=== PATIENT | male | born 1990 | race Caucasian/White ===

== ENCOUNTER 2020-01-24 14:59 | Emergency (ER) | payer MEDICAID, OTHER ==
[~2020-01-24] VITALS: Ht 175.3 cm; Wt 120.3 kg
[~2020-01-24 14:59] MED LIST: APIX5TAB3 PO; NO HOME MEDS
--- NOTE | 2020-01-24 15:44 | NUR ---
PT FEELS THAT HE IS HAVING MEMORY PROBLOMS/ TRUOBLE CONSITRATING HAS BEEN ON THORAZINE STATE HE QUIT TAKING HIS THORAZINE 2 DAYS AGO GO HE GOT OUT OF HALF-WAY 3 DAYS HE HAS S THUMB TWICH WHICH HE SAY HE THANKS IS FROM [facility] HE WANT TO SEE IF HE CAN GET RIDALIN OR ADORAL
[2020-01-24 15:54] VITALS: BP 127/71
[2020-01-24] MEDS ORDERED: normal saline 1000ml 1,000 ML IV ONE (16:10)
[2020-01-24 16:39] LABS: BASOPHILS % (AUTO) 0.4 % (0-1); EOSINOPHILS # (AUTO) 0.1 X10'3 (0-0.9); EOSINOPHILS % (AUTO) 0.7 % (0-6); HEMATOCRIT 41.5 % (42.0-52.0); HEMOGLOBIN 14.4 g/dl (14.0-17.9); LYMPHOCYTES # (AUTO) 1.7 X10'3 (1.1-4.8); MEAN CORPUSCULAR HEMOGLOBIN 30.7 PG (27.0-31.0); MEAN CORPUSCULAR HGB CONC 34.7 g/dL (33.0-36.5); MEAN CORPUSCULAR VOLUME 88.5 FL (78-98); MEAN PLATELET VOLUME 8.1 FL (7.4-10.4); MONOCYTES % (AUTO) 10.7 % (2-12); NEUTROPHILS # (AUTO) 6.9 X10'3 (1.8-7.7); NEUTROPHILS % (AUTO) 71.2 % (42-75); PLATELET COUNT 334 X10'3 (140-440); RED BLOOD COUNT 4.69 X10'6 (4.70-6.10); RED CELL DISTRIBUTION WIDTH 13.2 % (11.5-14.5); WHITE BLOOD COUNT 9.7 X10'3 (4.5-11.0)
[2020-01-24 16:46] LABS: D-DIMER 0.21 MG/L FEU (0-0.50)
[2020-01-24 16:49] LABS: ALANINE AMINOTRANSFERASE 43 U/L (12-78); ALBUMIN 4.2 G/DL (3.4-5.0); ALBUMIN/GLOBULIN RATIO 1.1 (1.1-1.5); ALKALINE PHOSPHATASE 107 IU/L (46-116); ANION GAP 7 (8-16); ASPARTATE AMINO TRANSFERASE 22 U/L (10-37); BILIRUBIN,TOTAL 0.7 MG/DL (0.1-1.0); BLOOD UREA NITROGEN 14 MG/DL (7-18); CHLORIDE 107 MMOL/L (99-107); CREATININE 1.08 MG/DL (0.60-1.10); GLUCOSE 94 MG/DL (70-104); POTASSIUM 4.2 MMOL/L (3.5-5.1); SODIUM 141 MMOL/L (135-145); TOTAL CARBON DIOXIDE 27.1 MMOL/L (24-32); eGFR 81 ML/MIN
== END 2020-01-24 17:32 | disposition home or self-care (01) ==
LOC: ER 14:59
DX: F90.9 Attention-deficit hyperactivity disorder, unspecified type (principal); F32.9 Major depressive disorder, single episode, unspecified; F41.9 Anxiety disorder, unspecified; F20.9 Schizophrenia, unspecified; F12.10 Cannabis abuse, uncomplicated; F17.200 Nicotine dependence, unspecified, uncomplicated; Z79.899 Other long term (current) drug therapy
CPT/HCPCS: 36415; 80053; 85025; 85379; 93005; 96360; 99284; J7030

== ENCOUNTER 2020-02-05 02:40 | Inpatient (IN) | payer MEDICAID, OTHER ==
[~2020-02-05] VITALS: Ht 177.8 cm; Wt 122.7 kg
[2020-02-05] MEDS ORDERED: LORazepam 2 mg/ml vial IV ONE ×4 (02:55→19:45)
[2020-02-05] MEDS ORDERED: normal saline 1000ml 1,000 ML IV ONE ×3 (03:00→19:45)
[2020-02-05 03:01] LABS: BASOPHILS # (AUTO) 0.2 X10'3 (0-0.2); BASOPHILS % (AUTO) 0.7 % (0-1); EOSINOPHILS % (AUTO) 0.1 % (0-6); HEMATOCRIT 39.3 % (42.0-52.0); HEMOGLOBIN 13.5 g/dl (14.0-17.9); LYMPHOCYTES # (AUTO) 1.6 X10'3 (1.1-4.8); LYMPHOCYTES % (AUTO) 5.9 % (21-51); MEAN CORPUSCULAR HEMOGLOBIN 30.2 PG (27.0-31.0); MEAN CORPUSCULAR HGB CONC 34.3 g/dL (33.0-36.5); MEAN PLATELET VOLUME 8.1 FL (7.4-10.4); MONOCYTES # (AUTO) 2.5 X10'3 (0-0.9); MONOCYTES % (AUTO) 9.6 % (2-12); NEUTROPHILS % (AUTO) 83.7 % (42-75); PLATELET COUNT 420 X10'3 (140-440); RED BLOOD COUNT 4.47 X10'6 (4.70-6.10); RED CELL DISTRIBUTION WIDTH 13.1 % (11.5-14.5)
[2020-02-05 03:03] LABS: WHITE BLOOD COUNT 26.3 X10'3 (4.5-11.0)
--- NOTE | 2020-02-05 03:08 | NUR ---
CALLED POISON CONTROL. STATED THAT IF PT DID INGEST RAT POISON, TO MONITOR COAGULATION LABS AND FOR BUSINESS CONTROLLER DEPRESSION. INITIATE SEIZURE PRECAUTIONS. REPEAT CO-AGS IN 3 DAYS FOR FOLLOW UP. EDMD AZUCENA MADE AWARE OF FINDINGS.
[2020-02-05 03:12] LABS: ALANINE AMINOTRANSFERASE 84 U/L (12-78); ALBUMIN 3.5 G/DL (3.4-5.0); ALBUMIN/GLOBULIN RATIO 0.9 (1.1-1.5); ALKALINE PHOSPHATASE 97 IU/L (46-116); ANION GAP 13 (8-16); ASPARTATE AMINO TRANSFERASE 74 U/L (10-37); BILIRUBIN,TOTAL 1.2 MG/DL (0.1-1.0); BLOOD UREA NITROGEN 14 MG/DL (7-18); CALCIUM 8.6 MG/DL (8.5-10.1); CHLORIDE 99 MMOL/L (99-107); ETHANOL < 0.010 GM/DL (0.0-0.010); GLUCOSE 90 MG/DL (70-104); POTASSIUM 4.2 MMOL/L (3.5-5.1); SODIUM 134 MMOL/L (135-145); TOTAL CARBON DIOXIDE 22.4 MMOL/L (24-32); TOTAL PROTEIN 7.2 G/DL (6.4-8.2); eGFR 89 ML/MIN
[2020-02-05 03:35] LABS: CREATINE KINASE 1332 U/L (39-308)
[2020-02-05] MEDS ORDERED: diphenhydrAMINE 50 mg/ml inj IV ONE ×2 (03:45)
--- NOTE | 2020-02-05 03:56 | NUR ---
PT STATES HE HAS NOT TAKEN HIS MEDICATIONS IN MONTHS. HAS HOME MEDS WITH HIM. THORAZINE, COGENTIN, ATORVASTATIN, TENEX
--- NOTE | 2020-02-05 03:58 | NUR ---
PREVIOUS MED INSTRUCTIONS: THORAZINE HCL: 100MG TAB: 1 TAB PO AM AND NOON THORAZINE HCL: 200MG TAB: 1 TAB PO AM AND NOON (TOTAL DOSAGE 300MG EACH ADMINISTRATION) ATORVASTATIN: 20MG TAB: I TAB PO DAILY COGENTIN: 1 MG TAB: 1 TAB PO BID TENEX: 1MG TAB : 1 TAB PO HS
[2020-02-05 04:06] LABS: CLARITY,URINE CLEAR (Clear); COLOR,URINE YELLOW (Yellow); GLUCOSE, URINE NEGATIVE (Neg); KETONES,URINE >=80 mg/dl (Neg); LEUKOCYTE ESTERASE ,URINE NEGATIVE (Neg); NITRITES, URINE NEGATIVE (Neg); OCCULT BLOOD,URINE TRACE-INTACT (Neg); PROTEIN,URINE NEGATIVE (Neg); UROBILINOGEN,URINE 0.2 E.U/dL (0.2-1.0)
[2020-02-05 04:07] LABS: UA COLLECTION TYPE STRAIGHT CATH
[2020-02-05] MEDS ORDERED: dextrose 5%-normal saline 1,000 ML IV ONE (04:10)
[2020-02-05 04:11] LABS: BACTERIA,URINE NONE SEEN /HPF (Neg); RBC,URINE 0-2 /HPF (0-2); SQUAMOUS EPITHELIAL CELL,UR FEW /LPF (FEW); WBC,URINE NONE SEEN /HPF (0-4)
[2020-02-05 04:13] LABS: URINE AMPHETAMINE SCREEN POSITIVE (Neg); URINE BARBITUATE SCREEN NEGATIVE (Neg); URINE BENZODIAZEPINES SCREEN NEGATIVE (Neg); URINE CANNABINOID SCREEN NEGATIVE (Neg); URINE COCAINE SCREEN NEGATIVE (Neg); URINE METHADONE SCREEN NEGATIVE (Neg); URINE OPIATE SCREEN NEGATIVE (Neg); URINE PHENCYCLIDINE SCREEN NEGATIVE (Neg)
--- NOTE | 2020-02-05 07:13 | NUR ---
patient asleep,tachypneic 35,seizure pads on.We will monitor.
--- NOTE | 2020-02-05 07:30 | NUR ---
Dr. Keene at bedside.
[2020-02-05 07:55] LABS: BASOPHILS # (AUTO) 0.1 X10'3 (0-0.2); BASOPHILS % (AUTO) 0.4 % (0-1); MEAN CORPUSCULAR HGB CONC 34.6 g/dL (33.0-36.5); MONOCYTES # (AUTO) 2.6 X10'3 (0-0.9); NEUTROPHILS # (AUTO) 19.6 X10'3 (1.8-7.7)
[2020-02-05 07:56] LABS: EOSINOPHILS % (AUTO) 0.1 % (0-6); HEMATOCRIT 37.4 % (42.0-52.0); HEMOGLOBIN 12.9 g/dl (14.0-17.9); LYMPHOCYTES # (AUTO) 1.7 X10'3 (1.1-4.8); LYMPHOCYTES % (AUTO) 7.2 % (21-51); MEAN CORPUSCULAR HEMOGLOBIN 30.3 PG (27.0-31.0); MEAN CORPUSCULAR VOLUME 87.6 FL (78-98); MEAN PLATELET VOLUME 8.2 FL (7.4-10.4); MONOCYTES % (AUTO) 10.9 % (2-12); NEUTROPHILS % (AUTO) 81.4 % (42-75); PLATELET COUNT 406 X10'3 (140-440); RED BLOOD COUNT 4.27 X10'6 (4.70-6.10)
[2020-02-05] MEDS ORDERED: normal saline 1000ML IV soln IVB ONE ×2 (09:00→19:45)
--- NOTE | 2020-02-05 09:18 | NUR ---
poison control/Vivek called,requesting repeat cmp.Will notify Jassi Ventura.
[2020-02-05 11:40] LABS: ALANINE AMINOTRANSFERASE 76 U/L (12-78); ALBUMIN 3.1 G/DL (3.4-5.0); ALBUMIN/GLOBULIN RATIO 0.9 (1.1-1.5); ALKALINE PHOSPHATASE 88 IU/L (46-116); ANION GAP 15 (8-16); ASPARTATE AMINO TRANSFERASE 60 U/L (10-37); BILIRUBIN,TOTAL 1.1 MG/DL (0.1-1.0); BLOOD UREA NITROGEN 10 MG/DL (7-18); CALCIUM 8.2 MG/DL (8.5-10.1); CHLORIDE 103 MMOL/L (99-107); CREATININE 0.83 MG/DL (0.60-1.10); GLUCOSE 92 MG/DL (70-104); POTASSIUM 3.8 MMOL/L (3.5-5.1); SODIUM 137 MMOL/L (135-145); TOTAL CARBON DIOXIDE 18.7 MMOL/L (24-32); TOTAL PROTEIN 6.6 G/DL (6.4-8.2); eGFR > 90 ML/MIN
--- NOTE | 2020-02-05 14:20 | NUR ---
patient's hr up to 136 when being aroused,Dr Keene made aware,ok'd to move patient to overflow.
--- NOTE | 2020-02-05 14:34 | NUR ---
Consulted with RAJI Hawthorne for pt's tachycardia; order of Ativan 1mg to be given now. RN to report if it helps, but if not to return to [place] for further orders.
[2020-02-05] MEDS ORDERED: LORazepam 1 MG tablet PO STA (14:36)
[2020-02-05] MEDS ORDERED: ATOR20TA10 PO (14:43)
[2020-02-05] MEDS ORDERED: BENZ1TAB7 PO (14:43)
[2020-02-05] MEDS ORDERED: CHLO100T24 PO (14:43)
[2020-02-05] MEDS ORDERED: CHLO200T9 PO (14:43)
[2020-02-05] MEDS ORDERED: CHLO100T16 PO (14:43)
[2020-02-05] MEDS ORDERED: GUAN1TAB PO (14:43)
--- NOTE | 2020-02-05 15:42 | NUR ---
Pt heart rate remains elevated in the 130-140s. Consulted with RAJI; Order for IV fluids and IV Ativan given. Addendum: 02/05/20 at 1545 by MARIE Pt given late lunch traashly.
--- NOTE | 2020-02-05 16:00 | NUR ---
Pt brought from main ED at 1422. Pt has been tachycardic 130s-140s. LAC field start IV, flushed at 1505, patent. 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 Pt has psychiatric medications on him but states he does not take them because he just wants adderall. Pt denies all mental health assessment questions, and states he uses meth because "it makes me smarter." Pt states there wasn't any particular reason he started using "I was at a green party and hanging with a bairon all night, and then I tried it." Pt states his mom and grandma live in town and are his support and they are aware he is here. Pt is cooperative and polite. He is spastic, ataxic and therefore his gait is unsteady. Urinal at bedside and educated to let nurse know if he wants to walk to the bathroom. His skin remains flushed, and he talks in mostly 4-5 words but is not SOB. Prefers to be called Pat.
--- NOTE | 2020-02-05 16:10 | NUR ---
Apical HR 140 (matches SPo2), Manual BP 162/85
--- NOTE | 2020-02-05 17:28 | NUR ---
Pts mom, Kelin, called at 1652. Pt approved call and stated this RN could discuss pt care with mother. Mother informed RN of the following timeline: Pt's father in 2011. It was around this time pt began using meth. "He spiraled because he was devestated about his father." In 2015, pt had a run in with the [employer] and subsequently was put in group home for 6 years, but served less time due to "good behavior and them thinking he needed mental help". So, pt served 3 years, then was at [facility] for 1.5 years. He was just released 1.5 weeks ago. She was initally told that he would be released in Dec 2020 to a mens home "to get back on his feet" and was surprised pt was homeless and has returned. She states his "shakiness" is new, and that it was not present when he initally went into group home/state hospital. Mother states he has attempted suicide via OD in the past. She states he has stated he experiencing auditory hallucinations in the past. Mother thinks the psychiatric medications are a large reason for his body movements and cognitive impairment, in conjunction with previous meth use. Pt mom will call back for updates.
--- NOTE | 2020-02-05 18:30 | NUR ---
seizure precautions rails padded
--- NOTE | 2020-02-05 19:26 | NUR ---
[facility] here Alfonzo requested advixe from Dr Soto current status " Patient is not mmedically cleared." Johnmichelle is postponing MH evaluation until medically cleared. Please inform [facility] office when patient is medically cleared. Thank you
--- NOTE | 2020-02-05 19:40 | NUR ---
Dr Mcdaniel notified of temp 101.2 tacycardic and BP trending down 124/56 hr 133. patient is not medically cleared Dr Mcdaniel will come to OF to evaluate. No new orders at this time.
[2020-02-05] MEDS ORDERED: acetaminophen 325mg tablet PO ONE ×2 (19:45)
--- NOTE | 2020-02-05 19:45 | NUR ---
Dr Fraga at bedside verbal orders received
[2020-02-05] MEDS: benztropine 1mg tablet PO SCH (20:00)
[2020-02-05] MEDS ORDERED: vancomycin/NS 1 GM ADD-VANTAGE 250 ML IV ONE (20:05)
[2020-02-05] MEDS ORDERED: CefTRIAXone/D5W-Rocephin 1gm 50 ML IV ONE (20:05)
--- NOTE | 2020-02-05 20:30 | NUR ---
cooling blanket applied
--- NOTE | 2020-02-05 20:45 | NUR ---
moved rogelio to room 13 in main ED per Dr Mcdaniel wanting to monitor patient closer Addendum: 02/06/20 at 0507 by NING mispelled patient
[2020-02-05 20:46] LABS: BASOPHILS # (AUTO) 0.1 X10'3 (0-0.2); HEMOGLOBIN 12.4 g/dl (14.0-17.9); LYMPHOCYTES # (AUTO) 1.9 X10'3 (1.1-4.8); MEAN PLATELET VOLUME 8.4 FL (7.4-10.4); MONOCYTES # (AUTO) 2.2 X10'3 (0-0.9)
[2020-02-05 20:48] LABS: BASOPHILS % (AUTO) 0.7 % (0-1); EOSINOPHILS % (AUTO) 0.2 % (0-6); HEMATOCRIT 36.5 % (42.0-52.0); LYMPHOCYTES % (AUTO) 11.6 % (21-51); MEAN CORPUSCULAR HEMOGLOBIN 29.4 PG (27.0-31.0); MEAN CORPUSCULAR VOLUME 86.5 FL (78-98); MONOCYTES % (AUTO) 13.8 % (2-12); NEUTROPHILS % (AUTO) 73.7 % (42-75); PLATELET COUNT 375 X10'3 (140-440); RED BLOOD COUNT 4.22 X10'6 (4.70-6.10); RED CELL DISTRIBUTION WIDTH 13.2 % (11.5-14.5); WHITE BLOOD COUNT 16.2 X10'3 (4.5-11.0)
[2020-02-05 20:57] LABS: ALANINE AMINOTRANSFERASE 70 U/L (12-78); ALBUMIN 2.8 G/DL (3.4-5.0); ALBUMIN/GLOBULIN RATIO 0.8 (1.1-1.5); ALKALINE PHOSPHATASE 83 IU/L (46-116); ANION GAP 8 (8-16); ASPARTATE AMINO TRANSFERASE 44 U/L (10-37); BILIRUBIN,TOTAL 0.6 MG/DL (0.1-1.0); BLOOD UREA NITROGEN 10 MG/DL (7-18); CALCIUM 8.1 MG/DL (8.5-10.1); CHLORIDE 103 MMOL/L (99-107); CREATININE 0.83 MG/DL (0.60-1.10); GLUCOSE 125 MG/DL (70-104); POTASSIUM 3.4 MMOL/L (3.5-5.1); SODIUM 137 MMOL/L (135-145); TOTAL CARBON DIOXIDE 25.6 MMOL/L (24-32); TOTAL PROTEIN 6.1 G/DL (6.4-8.2); eGFR > 90 ML/MIN
[2020-02-05 21:07] LABS: CREATINE KINASE 538 U/L (39-308)
--- NOTE | 2020-02-05 21:30 | NUR ---
patietn with abrupt spastic arm movements and unsteady gait requires stand by assistance for urinal use Addendum: 02/06/20 at 0508 by NING patient
[2020-02-05] MEDS ORDERED: magnesium hydroxide 30ml (MOM) UD suspension PO PRN (23:30)
[2020-02-05] MEDS ORDERED: potassium Cl 40MEQ/1/2NS 520ml 520 ML IV PRN ×2 (23:30)
[2020-02-05] MEDS ORDERED: acetaminophen 325mg tablet PO PRN (23:30)
[2020-02-05] MEDS ORDERED: ondansetron/PF 4mg/2ml inj IV PRN (23:30)
[2020-02-05] MEDS ORDERED: mag hydrox/Alum hydrox/simeth 30ml oral suspension PO PRN (23:30)
[2020-02-05] MEDS ORDERED: iohexol 300mg/ml 100ml inj. ONE (23:31)
[2020-02-06] MEDS: normal saline 1000ml 1,000 ML IV SCH ×2 (01:19→08:34)
--- NOTE | 2020-02-06 05:00 | NUR ---
lying on left side no apparent distress
--- NOTE | 2020-02-06 07:07 | NUR ---
[facility] REPORT, PT IS SUPINE IN BED, IN SITE OF SITTER, NO NEEDS AT THIS TIME
[2020-02-06] MEDS ORDERED: heparin, porcine 5000 units/ml vial SQ SCH (08:00)
[2020-02-06] MEDS ORDERED: CefTRIAXone/D5W-Rocephin 1gm 50 ML IV SCH (08:00)
[2020-02-06] MEDS ORDERED: atorvastatin 20mg tablet PO SCH (08:00)
[2020-02-06] MEDS ORDERED: K and/or MAG REPLACEMENT MC SCH (08:00)
--- NOTE | 2020-02-06 08:05 | NUR ---
PT UP USING URINAL, CALM IN SITE OF SITTER
[2020-02-06] MEDS: benztropine 1mg tablet PO SCH (08:33)
--- NOTE | 2020-02-06 08:53 | NUR ---
pt req something to drink and eat, it was provided, calm no other needs at this time
[2020-02-06 08:55] LABS: BASOPHILS # (AUTO) 0.1 X10'3 (0-0.2); BASOPHILS % (AUTO) 0.6 % (0-1); EOSINOPHILS # (AUTO) 0.1 X10'3 (0-0.9); EOSINOPHILS % (AUTO) 0.7 % (0-6); HEMATOCRIT 35.5 % (42.0-52.0); HEMOGLOBIN 12.4 g/dl (14.0-17.9); LYMPHOCYTES # (AUTO) 1.7 X10'3 (1.1-4.8); LYMPHOCYTES % (AUTO) 14.2 % (21-51); MEAN CORPUSCULAR HEMOGLOBIN 30.3 PG (27.0-31.0); MEAN CORPUSCULAR HGB CONC 34.9 g/dL (33.0-36.5); MEAN PLATELET VOLUME 8.1 FL (7.4-10.4); MONOCYTES # (AUTO) 1.5 X10'3 (0-0.9); MONOCYTES % (AUTO) 13.1 % (2-12); NEUTROPHILS # (AUTO) 8.3 X10'3 (1.8-7.7); NEUTROPHILS % (AUTO) 71.4 % (42-75); PLATELET COUNT 358 X10'3 (140-440); RED BLOOD COUNT 4.08 X10'6 (4.70-6.10); RED CELL DISTRIBUTION WIDTH 13.2 % (11.5-14.5); WHITE BLOOD COUNT 11.6 X10'3 (4.5-11.0)
[2020-02-06 09:04] LABS: ALANINE AMINOTRANSFERASE 67 U/L (12-78); ALBUMIN 2.9 G/DL (3.4-5.0); ALBUMIN/GLOBULIN RATIO 0.8 (1.1-1.5); ALKALINE PHOSPHATASE 78 IU/L (46-116); ANION GAP 7 (8-16); ASPARTATE AMINO TRANSFERASE 37 U/L (10-37); BILIRUBIN,TOTAL 0.6 MG/DL (0.1-1.0); BLOOD UREA NITROGEN 5 MG/DL (7-18); BUN/CREATININE RATIO 7.6 (5.4-32.0); CALCIUM 8.3 MG/DL (8.5-10.1); CHLORIDE 106 MMOL/L (99-107); CREATININE 0.66 MG/DL (0.60-1.10); GLUCOSE 110 MG/DL (70-104); SODIUM 140 MMOL/L (135-145); TOTAL CARBON DIOXIDE 26.9 MMOL/L (24-32); TOTAL PROTEIN 6.4 G/DL (6.4-8.2); eGFR > 90 ML/MIN
--- NOTE | 2020-02-06 09:50 | NUR ---
K+ 500ML STARTED AT 125ML/HR ORDERED, KYLEIGH LOVELL NOTIFIED.
--- NOTE | 2020-02-06 09:50 | NUR ---
pt calm was given juice and jello, sitter in site of pt
--- NOTE | 2020-02-06 10:50 | NUR ---
pt calm, sitter in site of pt, no needs at this time
[2020-02-06 11:27] VITALS: BP 153/53
--- NOTE | 2020-02-06 12:30 | NUR ---
PATIENT ASKING FOR BELONGINGS, INFORMED HIM THEY ARE LOCKED UP.
[2020-02-06 12:36] LABS: PARTIAL THROMBOPLASTIN TIME 27 SECONDS (22-32)
--- NOTE | 2020-02-06 13:00 | NUR ---
[facility] HAS ACCEPTED PATIENT (DR MACHUCA). TRANSFER WILL HAPPEN TOMORROW AT 1000.
--- NOTE | 2020-02-06 13:30 | NUR ---
RESTING COMFORTABLY ON LEFT SIDE
--- NOTE | 2020-02-06 14:10 | NUR ---
ATE ALL OF HIS LUNCH, AMBULATED 150FT NO DIFFICULTIES.
--- NOTE | 2020-02-06 14:35 | NUR ---
PAGER ID: [phone] MESSAGE: [phone] [id number] RE: BED 13 ATE LUNCH, WALKED NO DIFFICULTY, HR STILL UP, 123.
--- NOTE | 2020-02-06 15:25 | NUR ---
SPOKE WITH MOM IN REGARDS TO DC HOME, SHE IS UNABLE TO NAIL EXPERT PATIENT, SHE IS WORKING. SHE SAID "SEND HIM ON THE BUS I GUESS", SHE ALSO STATED "MAYBE HE WILL DO ENOUGH DRUGS NEXT TIME HE WILL AND IT WILL BE ON THE DR CONSCIOUS.
--- NOTE | 2020-02-06 16:30 | NUR ---
TRIED TO CALL MOM AGAIN TO FIND OUT WHAT TIME SHE GETS OFF WORK. MAILBOX IS FULL. LEFT DIGITAL MSG.
[2020-02-06] MEDS ORDERED: lactobacillus rhamnosus 10,000 MMU CELLS/CAPSULE PO SCH (20:00)
== END 2020-02-06 18:24 | disposition home or self-care (01) | DRG 871 ==
LOC: ER 02:41 → ED HOLD 23:28
PROVIDERS: ADMIT Internal Medicine; ATTEND Internal Medicine
PROC: BW21ZZZ Computerized Tomography (CT Scan) of Abdomen and Pelvis (ICD-10-PCS; principal; 2020-02-05)
DX: A41.9 Sepsis, unspecified organism (principal); G92 Toxic encephalopathy; F15.90 Other stimulant use, unspecified, uncomplicated; F20.9 Schizophrenia, unspecified; E87.6 Hypokalemia; F12.90 Cannabis use, unspecified, uncomplicated; F32.9 Major depressive disorder, single episode, unspecified; Z20.828 Contact with and (suspected) exposure to other viral communicable diseases; F41.9 Anxiety disorder, unspecified; Z79.899 Other long term (current) drug therapy
CPT/HCPCS: 36415; 71045; 74177; 80053; 80305; 80320; 80329; 81001; 82550; 83605; 84145; 84443; 85025; 85610; 85730; 87040; 87635; 93005; 96374; 99285; C9803; G0378; J0696; J1200; J1644; J2060; J3370; J3480; J7030; J7042; Q9967